=== PATIENT | female | born 1965 | race Two or more races ===

== ENCOUNTER 2020-08-09 14:32 | Emergency (ER) | payer SELFPAY ==
[~2020-08-09] VITALS: Ht 157.5 cm; Wt 68.0 kg
[2020-08-09] MEDS ORDERED: methylPREDNISolone SOD SUCC PF 125 MG/2 ML VIAL. IV ONE (15:30)
[2020-08-09] MEDS ORDERED: IV NORMAL SALINE 1000ML BAG 1,000 ML IV ONE (15:30)
[2020-08-09] MEDS ORDERED: ACETAMINOPHEN 500 MG TABLET PO ONE (15:30)
[2020-08-09 16:16] LABS: BASO % 0 % (0-3); EOS % 0 % (0-3); HEMATOCRIT 44.2 % (36.0-47.0); HEMOGLOBIN 15.1 g/dL (12.0-15.5); LYMPH # 0.8 x10^3/uL (1.0-4.8); LYMPH % 17 % (24-48); MEAN CORPUSCULAR HEMOGLOBIN 30 pg (25-35); MEAN CORPUSCULAR HGB CONC 34 g/dL (31-37); MEAN CORPUSCULAR VOLUME 88 fL (79-100); MONO # 0.4 x10^3/uL (0.0-1.1); MONO % 8 % (0-9); NEUT # 3.3 x10^3/uL (1.8-7.7); NEUT % 74 % (31-73); PLATELET COUNT 190 x10^3/uL (140-400); RED BLOOD COUNT 5.02 x10^6/uL (3.50-5.40); WHITE BLOOD COUNT 4.5 x10^3/uL (4.0-11.0)
[2020-08-09 16:20] LABS: CALCIUM 8.6 mg/dL (8.5-10.1); CREATININE 0.8 mg/dL (0.6-1.0); POTASSIUM 4.1 mmol/L (3.5-5.1)
[2020-08-09 16:26] LABS: ALBUMIN 3.7 g/dL (3.4-5.0); TOTAL BILIRUBIN 0.3 mg/dL (0.2-1.0); TOTAL PROTEIN 7.3 g/dL (6.4-8.2)
--- NOTE | 2020-08-09 16:50 | EKG ---
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
--- NOTE | 2020-08-09 16:57 | RAD ---
PORTABLE CHEST 1V History: Reason: cough, covid + / Spl. Instructions: / History: Comparison: None. Findings: Low lung volumes. No consolidation. No pleural effusion. No pneumothorax. Normal heart size. Impression: 1. Low lung volumes. Electronically signed by: Glenn Denton DO (08/09/2020 4:54 PM) [facility]
[2020-08-09 17:30] VITALS: BP 131/83
[2020-08-09] MEDS ORDERED: PRED50TA PO (17:52)
--- NOTE | 2020-08-09 17:52 | PHYS DOC ---
Past Medical History Past Medical History: Asthma, High Cholesterol Past Surgical History: Cholecystectomy Smoking Status: Never Smoker Alcohol Use: Sober General Adult EDM: Chief Complaint: FEVER HPI: HPI: Patient is a 55 year old female with history of asthma, high cholesterol, who presents to the ED today complaining of COVID-19 symptoms. Patient states she was diagnosed with COVID-19 on Saturday, she did the test on Saturday last week. She states since then she has had increased cough, shortness of breath, headache and mild intermittent generalized chest pain. Denies anything specifically exacerbating or relieving her symptoms. She states she is also running a fever. Review of Systems: Review of Systems: Constitutional: Denies fever or chills. [] Eyes: Denies change in visual acuity. [] HENT: Denies nasal congestion or sore throat. [] Respiratory: Reports cough and shortness of breath. [] Cardiovascular: Reports chest pain GI: Denies abdominal pain, nausea, vomiting, bloody stools or diarrhea. [] : Denies dysuria. [] Musculoskeletal: Denies back pain or joint pain. [] Integument: Denies rash. [] Neurologic: Reports headache, denies focal weakness or sensory changes. [] Psychiatric: Denies depression or anxiety. [] Heart Score: HEART Score for Chest Pain: HEART Score for Chest Pain Response (Comments) Value History Slighlty/Non-Suspicious 0 ECG Normal 0 Age >45 - < 65 1 Risk Factors 1 or 2 Risk Factors 1 Troponin < Normal Limit 0 Total 2 Risk Factors: Risk Factors: DM, Current or recent (<one month) smoker, HTN, HLP, family history of CAD, obesity. Risk Scores: Score 0 - 3: 2.5% MACE over next 6 weeks - Discharge Home Score 4 - 6: 20.3% MACE over next 6 weeks - Admit for Clinical Observation Score 7 - 10: 72.7% MACE over next 6 weeks - Early Invasive Strategies Current Medications: Current Medications Medications (Trade) Dose Ordered Sig/Michelle Start Time Stop Time Status Last Admin Dose Admin Acetaminophen (Tylenol) 1,000 mg 1X ONCE 08/09/20 15:30 08/09/20 15:31 DC 08/09/20 15:59 1,000 MG Methylprednisolone Sodium Succinate (SOLU-Medrol 125MG VIAL) 125 mg 1X ONCE 08/09/20 15:30 08/09/20 15:31 DC 08/09/20 15:59 125 MG Sodium Chloride 1,000 ml @ 1,000 mls/hr 1X ONCE 08/09/20 15:30 08/09/20 16:29 DC 08/09/20 15:59 1,000 MLS/HR Allergies: Allergies: Allergies Coded Allergies Type Severity Reaction Last Updated Verified No Known Drug Allergies 08/09/20 No Physical Exam: PE: Constitutional: Well developed, well nourished, no acute distress, non-toxic appearance. [] HENT: Normocephalic, atraumatic, bilateral external ears normal, oropharynx moist, no oral exudates, nose normal. [] Eyes: PERRLA, EOMI, conjunctiva normal, no discharge. [] Neck: Normal range of motion, no tenderness, supple, no stridor. [] Cardiovascular:Heart rate regular rhythm, no murmur [] Lungs & Thorax: Bilateral breath sounds clear to auscultation [] Abdomen: Bowel sounds normal, soft, no tenderness, no masses, no pulsatile masses. [] Skin: Warm, dry, no erythema, no rash. [] Back: No tenderness, no CVA tenderness. [] Extremities: No tenderness, no cyanosis, no clubbing, ROM intact, no edema. [] Neurologic: Alert and oriented X 3, normal motor function, normal sensory function, no focal deficits noted. [] Psychologic: Affect normal, judgement normal, mood normal. [] Current Patient Data: Labs: Laboratory Tests Test 08/09/20 15:55 White Blood Count 4.5 x10^3/uL (4.0-11.0) Red Blood Count 5.02 x10^6/uL (3.50-5.40) Hemoglobin 15.1 g/dL (12.0-15.5) Hematocrit 44.2 % (36.0-47.0) Mean Corpuscular Volume 88 fL (79-100) Mean Corpuscular Hemoglobin 30 pg (25-35) Mean Corpuscular Hemoglobin Concent 34 g/dL (31-37) Red Cell Distribution Width 13.0 % (11.5-14.5) Platelet Count 190 x10^3/uL (140-400) Neutrophils (%) (Auto) 74 % (31-73) H Lymphocytes (%) (Auto) 17 % (24-48) L Monocytes (%) (Auto) 8 % (0-9) Eosinophils (%) (Auto) 0 % (0-3) Basophils (%) (Auto) 0 % (0-3) Neutrophils # (Auto) 3.3 x10^3/uL (1.8-7.7) Lymphocytes # (Auto) 0.8 x10^3/uL (1.0-4.8) L Monocytes # (Auto) 0.4 x10^3/uL (0.0-1.1) Eosinophils # (Auto) 0.0 x10^3/uL (0.0-0.7) Basophils # (Auto) 0.0 x10^3/uL (0.0-0.2) D-Dimer (Samantha) < 0.27 ug/mlFEU Sodium Level 139 mmol/L (136-145) Potassium Level 4.1 mmol/L (3.5-5.1) Chloride Level 101 mmol/L (98-107) Carbon Dioxide Level 25 mmol/L (21-32) Anion Gap 13 (6-14) Blood Urea Nitrogen 8 mg/dL (7-20) Creatinine 0.8 mg/dL (0.6-1.0) Estimated GFR (Cockcroft-Gault) 75.0 BUN/Creatinine Ratio 10 (6-20) Glucose Level 92 mg/dL (70-99) Lactic Acid Level 0.8 mmol/L (0.4-2.0) Calcium Level 8.6 mg/dL (8.5-10.1) Total Bilirubin 0.3 mg/dL (0.2-1.0) Aspartate Amino Transferase (AST) 21 U/L (15-37) Alanine Aminotransferase (ALT) 27 U/L (14-59) Alkaline Phosphatase 82 U/L (46-116) Total Protein 7.3 g/dL (6.4-8.2) Albumin 3.7 g/dL (3.4-5.0) Albumin/Globulin Ratio 1.0 (1.0-1.7) Procalcitonin < 0.10 ng/mL (0.00-0.10) Laboratory Tests 08/09/20 15:55 Laboratory Tests 08/09/20 15:55 Vital Signs: Vital Signs Date Time Temp Pulse Resp B/P (MAP) Pulse Ox O2 Delivery O2 Flow Rate FiO2 08/09/20 14:48 100.0 93 16 166/97 (120) 97 Room Air 100.0 EKG: EKG: [] Radiology/Procedures: Radiology/Procedures: []PROCEDURE: PORTABLE CHEST 1V PORTABLE CHEST 1V History: Reason: cough, covid + / Spl. Instructions: / History: Comparison: None. Findings: Low lung volumes. No consolidation. No pleural effusion. No pneumothorax. Normal heart size. Impression: 1. Low lung volumes. Electronically signed by: Glenn Bautista DO (08/09/2020 4:54 PM) [facility] DICTATED and SIGNED BY: GLENN BAUTISTA DO DATE: 08/09/20 [id number] 0 Course & Med Decision Making: Course & Med Decision Making Pertinent Labs and Imaging studies reviewed. (See chart for details) This is a 55-year-old female patient presenting to the ED today reporting she was diagnosed with Covid on Saturday last week currently having increased cough, shortness of breath, headache and chest pain. EKG is negative, chest x-ray interpreted by radiologist was noted for low lung volumes otherwise no acute findings, CBC, CMP, and lactic negative for any acute findings, O2 sats 9% on room air. Temperature 100.0. Patient was discharged home. Provided return precautions. Dragon Disclaimer: Dragfidel Disclaimer: This electronic medical record was generated, in whole or in part, using a voice recognition dictation system. Departure Departure Impression: Primary Impression: COVID-19 Additional Impressions: Cough Fever Qualified Codes: R50.9 - Fever, unspecified Chest pain Qualified Codes: R07.9 - Chest pain, unspecified Disposition: 01 DC HOME SELF CARE/HOMELESS Condition: STABLE Referrals: NO PCP (PCP) follow up with your doctor in 2 week Patient Instructions: Cough, Adult, [id number], Fever, Adult Additional Instructions: You were evaluated in the emergency room for COVID-19 symptoms. We recommend you quarantine yourself at home for 10 days, take Tylenol/Motrin for pain or fever. Follow-up with your doctor in the course of next week, come back to the ED at any point symptoms worsen. Scripts Prednisone (PREDNISONE) 50 Mg Tablet 1 TAB PO DAILY, #5 TAB Prov: MUTUNGAMILE [employer] CON[employer]YOR TENDER 08/09/20 MILE BECKFORD APRN Aug 09, 2020 17:52
== END 2020-08-09 18:09 | disposition home or self-care (01) ==
LOC: ER 14:32
DX: U07.1 COVID-19 (principal); R50.9 Fever, unspecified; R05 Cough; R07.89 Other chest pain; R06.02 Shortness of breath; R51.9 Headache, unspecified; J45.909 Unspecified asthma, uncomplicated; E78.00 Pure hypercholesterolemia, unspecified; Z90.49 Acquired absence of other specified parts of digestive tract
CPT/HCPCS: 36415; 71045; 80053; 83605; 84145; 85025; 85379; 87040; 93005; 96361; 96374; 99285; J2930; J7030

== ENCOUNTER → 2022-01-30 | Outpatient (CLI) | payer OTHER ==
[~2022-01-30] MED LIST: CONTRAST GIVEN. MC PRN; GADOTERATE 5 MMOL/10ML VIAL. IVP ONE; PRED50TA PO
--- NOTE | 2022-01-30 10:31 | RAD ---
EXAM: Brain MRI with and without contrast. HISTORY: Strokelike symptoms. Decreased sensation. TECHNIQUE: Multiplanar, multisequence magnetic resonance imaging of the brain was performed prior to and following the administration of intravenous contrast. COMPARISON: None. FINDINGS: There is no restricted diffusion to suggest acute infarction. There is a round focus of jimy ceptibility effect corresponding with a peripherally T2 hypointense lesion within the right centrum s emiovale measuring 6 mm, the appearance of which favors a cavernoma. There are punctate foci of T1 hy perintensity within this lesion due to prior hemorrhage. There is no surrounding edema to suggest rec ent hemorrhage. There is an arachnoid cyst within the anterior right middle cranial fossa measuring 3 .8 cm. This is typically of no clinical significance. There is no midline shift. There is no hydrocep halus. The orbits are unremarkable. There is opacification of the left maxillary sinus due to mucosal thicke zena and fluid. There is left greater than right ethmoid and frontal sinus mucosal thickening. There is a tiny right maxillary sinus mucous retention cyst. There is minimal mastoid fluid. There are norm al flow voids within the cerebral vessels. There are a few scattered foci of T2/FLAIR hyperintensity within the bilateral frontal white matter. There is no suspicious enhancing lesion. IMPRESSION: 1. No acute intracranial finding. 2. 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 3. Scattered foci of signal change within the bilateral frontal white matter, a nonspecific finding w hich can be seen with chronic small vessel disease and chronic migraine headaches. The lesion distrib ution and age of the patient does not favor changes due to demyelinating disease. Electronically signed by: Katey Foster MD (01/30/2022 10:29 AM) [facility]
== END ==
LOC: MRI 09:16
PROVIDERS: ATTEND Family Medicine
DX: G93.0 Cerebral cysts (principal); R29.90 Unspecified symptoms and signs involving the nervous system; R20.8 Other disturbances of skin sensation
CPT/HCPCS: 70553; A9575